=== PATIENT | female | born 1990 | race Caucasian/White ===

== ENCOUNTER 2021-03-13 11:33 | Emergency (ER) | payer OTHER, SELFPAY ==
[2021-03-13 11:43] VITALS: BP 113/72; PULSE 115; RESP 18; TEMP 36.4; O2SAT 100
[2021-03-13 12:31] LABS: Basophils Percent Auto 0.2 % (0.2-1.2); Eosinophils Percent Auto 0.4 % (0-4.4); Hemoglobin 13.4 g/dL (12.0-15.0); Immature Granulocyte Absolute 0.02 K/mm3 (0.00-0.031); Immature Granulocyte Percent A 0.4 % (0-0.5); Lymphocytes Absolute Auto 0.26 K/mm3 (0.9-3.2); Lymphocytes Percent Auto 5.1 % (18.3-44.2); Mean Corpuscular HGB Conc 35.3 g/dl (32-36); Mean Corpuscular Hemoglobin 29.8 pg (26-34); Mean Corpuscular Volume 84.4 fl (80-100); Mean Platelet Volume 10.3 fl (7.4-10.4); Monocytes Absolute Auto 0.3 K/mm3 (0.1-0.6); Monocytes Percent Auto 6.5 % (2.6-8.5); Neutrophils Absolute Auto 4.4 K/mm3 (1.3-6.7); Neutrophils Percent Auto 87.4 % (45.5-73.1); Platelet Count Result 275 k/mm3 (150-375); Red Cell Distribution Width 13.2 % (11.5-14.5); White Blood Count 5.1 K/mm3 (4.5-10.0)
[2021-03-13 12:35] LABS: Add Urine Microscopic? YES; Appearance Urine Cloudy (Clear); Bilirubin Urine Negative (Negative); Blood Urine Negative (Negative); Color Urine Yellow (Yellow); Glucose Urine UA Negative (Negative); Ketones Urine 2+ mg/dL (Negative); Leukocyte Esterase Ur Trace LEU/UL (Negative); Mucus Urine Heavy /lpf; Nitrate Urine Negative (Negative); Protein Urine 2+ mg/dL (Negative); Specific Grav Ur 1.027 (1.001-1.035); Squamous Epithelial Cell Urine Few /hpf (Few); Urobilinogen Urine Negative mg/dL (<2.0)
[2021-03-13 12:41] LABS: Alanine Aminotransferase 15 U/L (4-35); Albumin Level 4.7 g/dL (3.5-5.1); Alkaline Phosphatase 69 U/L (38-126); Anion Gap 13 mmol/L (8-16); Aspartate Amino Transferase 28 U/L (14-36); Bilirubin,Total 0.5 mg/dL (0.2-1.3); Blood Urea Nitrogen 9 mg/dL (7-17); Carbon Dioxide 17 mmol/L (22-30); Chloride 103 mmol/L (98-107); Estimated CRCL calculation 118 ml/min; Estimated Glomerular Filt Rate > 60; Glucose 98 mg/dL (65-110); Lipase 98 U/L (23-300); Potassium 3.8 mmol/L (3.4-5.0); Sodium 133 mmol/L (137-145)
--- NOTE | 2021-03-13 12:53 | ED.NAVMDI ---
HPI - Nausea/Vomiting/Diarrhea General Chief complaint: Nausea/Vomiting/Diarrhea Stated complaint: N/V 12WKS PREG Time Seen by Provider: 03/13/21 12:27 Source: patient Mode of arrival: ambulatory Limitations: no limitations History of Present Illness HPI Narrative: Patient is a 31-year-old female at 12 weeks complaining of nausea and vomiting, nonbilious nonbloody started yesterday. Patient states that she had hyperemesis gravidarum on her first . Patient states that she is had care with this and a first trimester ultrasound. Patient denies any abdominal pain, vaginal bleeding or vaginal discharge. Related Data Home Medications Medication Instructions Recorded Confirmed doxylamine-pyridoxine (vit B6) tablet PO 03/13/21 03/13/21 [Diclegis] Allergies Allergy/AdvReac Type Severity Reaction Status Date / Time No Known Allergies Allergy Verified 03/13/21 12:13 Review of Systems Review of Systems: All systems reviewed & are unremarkable except as noted in HPI and below Constitutional: Constitutional: Denies body ache(s), Denies chills, Denies excessive sweating, Denies fatigue, Denies fever(s), Denies headache(s), Denies lethargy, Denies malaise, Denies weakness and Denies weight loss Eyes: Eyes: Denies blurry vision, Denies change in vision and Denies loss of vision ENT: Denies dizziness, Denies ear discharge, Denies headache(s), Denies lip swelling, Denies epistaxis, Denies nasal congestion, Denies neck pain, Denies throat swelling and Denies tongue swelling Cardiovascular: Cardiovascular: Denies chest pain, Denies chest pain at rest, Denies chest pain with activity, Denies diaphoresis, Denies rapid heart rate, Denies edema, Denies irregular heart rhythm, Denies lightheadedness, Denies palpitations, Denies dyspnea and Denies dyspnea on exertion Respiratory: Respiratory: Denies chest congestion, Denies cough, Denies hemoptysis, Denies dyspnea and Denies dyspnea on exertion Gastrointestinal: Gastrointestinal: Denies abdominal pain, Denies melena, Denies hematochezia, Denies diarrhea and Denies hematemesis Musculoskeletal: Musculoskeletal: Denies abnormal gait, Denies deformity, Denies joint swelling, Denies limited range of motion, Denies neck pain and Denies numbness Neurologic: Denies Abnormal speech present, Denies abnormal gait, Denies confusion, Denies dizziness, Denies headache(s), Denies focal weakness, Denies loss of vision, Denies numbness, Denies Other visual disturbances, Denies Sensory deficit (Neuro) and Denies weakness Psychiatric: Psychiatric: Denies confusion, Denies depression, Denies auditory hallucinations, Denies homicidal ideation and Denies suicidal ideation Endocrine: Endocrine: Denies cold intolerance, Denies excessive sweating, Denies fatigue, Denies heat intolerance and Denies palpitations Hematologic/Lymphatic: Hematologic/Lymphatic: Denies easy bleeding and Denies easy bruising Allergic/Immunologic: Allergic/Immunologic: Denies lip swelling, Denies throat swelling and Denies tongue swelling PMFSH Comments Past medical history: Hyperemesis gravidarum Family history: Noncontributory Social history: Non-smoker no EtOH or drug use Exam Const: General: cooperative, healthy appearing, comfortable, no acute distress, well developed, alert and awake; No confusion Orientation/consciousness: oriented to person, oriented to place, oriented to time, patient oriented x3 and No confusion Limitations: no limitations HENMT: Head: normal to inspection, normocephalic and atraumatic Ears: hearing grossly normal bilaterally, TM normal on the right and TM normal on the left General nose exam: Normal external nose present, Normal nares present and No nasal discharge present Face and sinus: normal facial exam Mouth: Yes Normal oral and palatal mucosa present, Yes lip normal, Yes tongue normal and Yes oropharynx normal Throat: posterior oropharynx normal, tonsils normal and uvula
[2021-03-13] MEDS: PROMETHAZINE HCL 25 MG/ML AMPUL 12.5 MG IV PUSH (13:27)
[2021-03-13] MEDS: SODIUM CHLORIDE 0.9% IV 1,000 ML 999 ML IV CONT (13:28)
[2021-03-13 14:05] VITALS: BP 122/68; PULSE 98; RESP 17; O2SAT 98
[2021-03-13] MEDS: ONDANSETRON INJ 4 MG/2 ML VIAL (17:24)
== END 2021-03-13 17:40 | disposition home or self-care (01) ==
PROVIDERS: Emergency Provider Emergency Medicine
DX: O21.9 Vomiting of pregnancy, unspecified (principal); O23.41 Unspecified infection of urinary tract in pregnancy, first trimester; Z3A.12 12 weeks gestation of pregnancy
CPT/HCPCS: 36415; 80053; 81001; 83690; 84702; 85025; 87086; 87804; 96361; 96374; 96375; 99284; J2405; J2550; J7030

== ENCOUNTER 2021-09-29 22:33 | Inpatient (IN) | payer OTHER, SELFPAY ==
[2021-09-29] VITALS (9 sets, daily range): BP systolic 116–125; BP diastolic 65–93; PULSE 63–79; TEMP 36.2; O2SAT 99–100
[2021-09-29 23:31] LABS: Basophils Percent Auto 0.3 % (0.2-1.2); Eosinophils Percent Auto 0.4 % (0-4.4); Hematocrit 32.7 % (37.0-47.0); Hemoglobin 10.8 g/dL (12.0-15.0); Immature Granulocyte Absolute 0.04 K/mm3 (0.00-0.031); Immature Granulocyte Percent A 0.4 % (0-0.5); Lymphocytes Absolute Auto 3.05 K/mm3 (0.9-3.2); Lymphocytes Percent Auto 32.5 % (18.3-44.2); Mean Corpuscular Hemoglobin 28.8 pg (26-34); Mean Corpuscular Volume 87.2 fl (80-100); Monocytes Absolute Auto 0.7 K/mm3 (0.1-0.6); Monocytes Percent Auto 7.9 % (2.6-8.5); Neutrophils Absolute Auto 5.5 K/mm3 (1.3-6.7); Neutrophils Percent Auto 58.5 % (45.5-73.1); Platelet Count Result 215 k/mm3 (150-375); Red Blood Count 3.75 M/mm3 (4.2-5.4); Red Cell Distribution Width 14.6 % (11.5-14.5); White Blood Count 9.4 K/mm3 (4.5-10.0)
[2021-09-29] MEDS: LACTATED RINGERS 1,000 ML 125 ML IV CONT (23:33)
[2021-09-30] VITALS (237 sets, daily range): BP systolic 87–142; BP diastolic 55–89; PULSE 51–149; RESP 16–18; TEMP 36.6–37.3; O2SAT 86–100
[2021-09-30] MEDS: LACTATED RINGERS 1,000 ML 125 ML IV CONT ×2 (00:17→04:13)
--- NOTE | 2021-09-30 00:18 | WPDANESEPPF ---
Anes - Initial Pre Proc Eval Procedure: Labor epidural Date/Time: 09/30/21 00:18 Surgeon: Ayaan Guadalupe MD Pre Op Diagnosis: labor pain Pre Op Diagnosis: Contractions Patient Data Age: 31 Gender: F Height: Weight: Last Vital Signs Temp 36.2 C L 09/29/21 22:58 Pulse 61 09/30/21 00:16 BP 114/68 09/30/21 00:16 Pulse Ox 100 09/30/21 00:16 Allergies Allergy/AdvReac Type Severity Reaction Status Date / Time amoxicillin Allergy Rash Verified 08/30/21 13:33 Penicillins Allergy Rash Verified 08/30/21 13:33 Home Medications Medication Instructions Recorded Confirmed Type ferrous sulfate 140 mg (45 mg 140 mg PO DAILY 08/30/21 08/30/21 History iron) tablet,extended release prenat.vits,krishan,uso-nrhz-kwlrd 1 tablet PO DAILY 08/30/21 08/30/21 History Laboratory Tests 09/29/21 09/29/21 23:17 23:17 WBC 9.4 K/mm3 K/mm3 (4.5-10.0) RBC 3.75 M/mm3 L M/mm3 (4.2-5.4) Hgb 10.8 g/dL L g/dL (12.0-15.0) Hct 32.7 % L % (37.0-47.0) MCV 87.2 fl fl (80-100) MCH 28.8 pg pg (26-34) MCHC 33.0 g/dl g/dl (32-36) RDW 14.6 % H % (11.5-14.5) Plt Count 215 k/mm3 k/mm3 (150-375) MPV 11.0 fl H fl (7.4-10.4) Immature Gran % (Auto) 0.4 % % (0-0.5) Neut % (Auto) 58.5 % % (45.5-73.1) Lymph % (Auto) 32.5 % % (18.3-44.2) [place] % (Auto) 7.9 % % (2.6-8.5) Eos % (Auto) 0.4 % % (0-4.4) Baso % (Auto) 0.3 % % (0.2-1.2) Lymph # (Auto) 3.05 K/mm3 K/mm3 (0.9-3.2) [place] # (Auto) 0.7 K/mm3 H K/mm3 (0.1-0.6) Eos # (Auto) 0.0 K/mm3 K/mm3 (0-0.3) Baso # (Auto) 0.0 K/mm3 K/mm3 (0.0-0.1) Abs Immat Gran (auto) 0.04 K/mm3 H K/mm3 (0.00-0.031) Absolute Neuts (auto) 5.5 K/mm3 K/mm3 (1.3-6.7) Absolute Nucleated RBC 0.0 K/mm3 K/mm3 (0.0-0.012) Nucleated RBC % 0.0 % % (0.0-0.2) RPR Pending Patient hx anesthesia problems: none Family hx anesthesia problems: none Results Review: All pre-operative results and documents have been reviewed as part of the pre-operative evaluation. [facility] Family History Family History Father Hypertension Diabetes mellitus Grandparent Hypertension Diabetes mellitus Sibling Seizure disorder Grandparent Cerebrovascular accident Grandparent Epilepsy Social History Social History Substance use: never Spiritual care concerns: No Anes - Eval Final PreProcedure Day of Procedure 09/30/21 00:18 Patient weight: normal Heart: regular rate and rhythm Lungs: clear to auscultation Airway: Mallampati scale class 1 Neurological: alert and oriented Last oral intake: 2 hours ASA classification: II Emergent: no Anesthetic plan: proceed Anesthesia type and monitoring: regional epidural and standard monitoring Results Review: All pre-operative results and documents have been reviewed as part of the pre-operative evaluation. Informed Consent: The patient's anesthetic plan and its attendant risks and benefits were discussed with the patient/family/POA. Questions were solicited and answers provided to the satisfaction of the patient/family/POA.
--- NOTE | 2021-09-30 00:19 | WPDANESEPN ---
Anes - Epidural Procedure Note Date/Time: 09/30/21 00:19 Consent: I have discussed with the patient/family/POA, the placement of an epidural catheter and the use of epidural narcotic/local anesthetic for labor analgesia and/or postoperative pain management, including associated potential risks, benefits, complications and side effects. I have discussed alternative methods of labor analgesia and/or postoperative pain management. The patient/family/POA, understand(s) and wish(es) to proceed with epidural narcotic/local anesthetic for labor analgesia and/or postoperative pain management. Time-Out: A pre-procedural Time-Out was completed immediately before starting the procedure and confirmed: Patient Identification, Site, Procedure, Patient Position and the Availability of Requisite Equipment. Clinical Indications: labor pain Epidural Insertion Note Patient position: sitting Skin prep: chlorhexidine and sterile drape Needle: 18g Tuohy-Schliff Catheter: 20g Unstyleted Technique: Loss of resistance. Level of insertion: L3/4 Catheter skin martin (cm): 4 Length in epidural space (cm): 9 Skin anesthesia: lidocaine 1% Test dose: 1.5% Lidocaine with [id number] Epi Time of test dose: 00:06 Observations: tolerated well Complications: none
--- NOTE | 2021-09-30 00:48 | LDADM ---
This patient, Jyotsna Parada, was admitted to Labor/Delivery/Recovery 104 on 09/29/21 at 22:33. Plans for labor, pain management and were discussed with patient. Patient/family oriented to hospital policies and general routines including ID bracelet, bed and alarms, visiting hours, pain management, procedures, bathroom and other care routines, personal items, smoking policy, room service/diet and guest tray routines, security routines, and visiting hours. Patient/Family are encouraged to report perceived risks to care and to ask questions if they do not understand what they are told or what they should do. See OBIX for further documentation.
[2021-09-30 07:04] LABS: Rapid Plasma Reagin Non-Reactive (NonReactive)
[2021-09-30] MEDS: OXYTOCIN 30 UNITS/NS 500 ML 30 UNITS/500 ML BAG IV CONT (08:02)
--- NOTE | 2021-09-30 08:45 | WPDOBADMIT ---
Obstetrics - Admit Note Admission Note: record reviewed. Additions to the history and/or subsequent changes in the physical findings follow. 31 y/o at 40 2/7 weeks here with contractions. Labor was diagnosed. She is comfortable with epidural. GBS neg. AVSS NST reactive TOCO: contractions every 2-5 min ABD soft, nontender, gravid, vertex EXT nontender Cervix 5/50/-2. AROM with clear fluid. A: IUP at term with labor. P: Anticipate .
--- NOTE | 2021-09-30 12:22 | PM.OBPNLAB ---
Pain Control Date/time seen: 09/30/21 12:22 Comfortable with epidural. Feeling more pressure. AVSS NST reactive TOCO: contractions every 2-3 min Cervix C/+1 Begin pushing.
--- NOTE | 2021-09-30 12:48 | PM.OBPRVD ---
OB - Delivery Note Procedure Delivery date: 09/30/21 Procedure: Induction method: None Delivery augmentation: Rupture of Membranes and Pitocin Delivery monitor: External FHT and External Uterine Route of delivery: Laceration Description: None Specimen: Yes (cord blood) Quantitative Blood Loss (ml): 180 Anesthesia type: Epidural Disposition: PACU Complications: None Narrative: 31 y/o at 40 2/7 weeks gestation who presented to the hospital with contractions. Labor was diagnosed. She received an epidural. Amniotomy was performed with return of clear fluid. Oxytocin was administered to augment labor. Her labor progressed and her cervix dilated completely. She pushed with good effort and delivered the infant's head to the perineum, followed by the body. The nose and mouth were bulb suctioned. After a delay, the cord was clamped and cut. The was handed off the field. Cord blood was collected. The placenta delivered spontaneously and was grossly normal in appearance. The usual 3 vessel cord was noted. The perineum was intact. Excellent hemostasis resulted as did excellent reapproximation of the normal anatomy. Needle and instrument counts were correct. The patient was taken to recovery room in stable condition. The went to the nursery in stable condition. I was present and scrubbed for the entire delivery. [place] Baby Date of : 09/30/21 Time of : 12:32 Weeks of gestation at delivery: 40 Infant gender: Male Weight (pounds): 8 Weight (ounces): 9 presentation: vertex position: Right Occiput Anterior Placenta delivery description: Spontaneous and Normal Configuration Cord Vessel Description: 3 Vessels and Delayed Cord Clamping score one minute: 9 score five minutes: 9
--- NOTE | 2021-09-30 12:51 | P.DS_ITS ---
DS: Admitting Diagnosis Discharge Date 10/01/21 Admitting Diagnosis IUP at 40 weeks Labor DS: Discharge Diagnosis Discharge Diagnosis (1) (normal spontaneous vaginal delivery): Code(s): O80 - Encounter for full-term uncomplicated delivery Status: Acute OB - DS: Summary OB Procedures : None OB Procedures Intrapartum: Spontaneous Vag Delivery OB Procedures: : None Time Spent with Patient Time attestation: Total time spent providing and/or coordinating discharge services: DS: Data Data Completed and Pending Labs on day of discharge: Labs from last 24 hours 09/29/21 09/29/21 09/29/21 23:17 23:17 23:17 WBC 9.4 RBC 3.75 L Hgb 10.8 L Hct 32.7 L MCV 87.2 MCH 28.8 MCHC 33.0 RDW 14.6 H Plt Count 215 MPV 11.0 H Immature Gran % (Auto) 0.4 Neut % (Auto) 58.5 Lymph % (Auto) 32.5 [place] % (Auto) 7.9 Eos % (Auto) 0.4 Baso % (Auto) 0.3 Lymph # (Auto) 3.05 [place] # (Auto) 0.7 H Eos # (Auto) 0.0 Baso # (Auto) 0.0 Abs Immat Gran (auto) 0.04 H Absolute Neuts (auto) 5.5 Absolute Nucleated RBC 0.0 Nucleated RBC % 0.0 RPR Non-reactive Blood Type O Positive Antibody Screen Negative Discharge Plan Discharge Attending physician on discharge: Ayaan Guadalupe Discharging Clinician: Ayaan Guadalupe Patient Disposition: Home, Self-Care Activity: pelvic rest Diet: regular Discharge Instructions: Call or return if temperature above 100.4? F, increased abdominal pain, increased vaginal bleeding or any new problems. Stand Alone Forms: General Discharge Information Follow-up/Referrals: Ayaan Guadalupe MD [Physician] - 6 Weeks Discharge Medications: New ibuprofen 600 mg tablet 600 mg PO Q6H PRN (Reason: cramps) Qty: 30 0RF ferrous sulfate 325 mg (65 mg iron) tablet 325 mg PO DAILY Qty: 30 0RF Continued #2 Tablet 1 tablet PO DAILY Discontinued ferrous sulfate 140 mg (45 mg iron) Tablet Extended Release 140 mg PO DAILY Date of admission: 08/25/22 22:33 Primary Care Provider: PHYSICIAN,NANNY/HOUSEHOLD MANAGER Admitting Provider: Ayaan Guadalupe Attending physician on admission: Ayaan Guadalupe Condition: Stable
[2021-09-30] MEDS: OXYTOCIN 30 UNITS/NS 500 ML 30 UNITS/500 ML BAG 125 UNITS IV CONT (13:31)
--- NOTE | 2021-09-30 15:35 | PC.NURSE ---
Patient transferred to post room #278 via wheelchair. Support person present. Oriented to unit, room, information board, rooming in, admission packet and security measures. Patient verbalizes understanding.
[2021-09-30] MEDS: IBUPROFEN 600 MG TABLET PO (16:54)
[2021-10-01 05:00] VITALS: BP 105/63; PULSE 65; RESP 18; TEMP 36.6; O2SAT 100
[2021-10-01 06:08] LABS: Hematocrit 24.2 % (37.0-47.0); Hemoglobin 8.1 g/dL (12.0-15.0)
[2021-10-01] MEDS: IBUPROFEN 600 MG TABLET PO (07:13)
[2021-10-01 07:30] VITALS: BP 98/58; PULSE 63; RESP 16; TEMP 36.4; O2SAT 100
--- NOTE | 2021-10-01 08:12 | WPDANLDPN2 ---
Anes-Prog Note L&D Date/Time: 10/01/21 08:12 Comfortable throughout: labor and delivery Neuraxial method: epidural Epidural/Spinal procedure site: clean & non-tender Neuro status: Neuro function grossly intact. Cardiovascular status: normal Respiratory status: normal Airway patency: baseline Mental status: baseline Post-Op hydration status: normal Vital Signs: Last Vital Signs Temp 98 F 10/01/21 05:00 Pulse 65 10/01/21 05:00 Resp 18 10/01/21 05:00 BP 105/63 10/01/21 05:00 Pulse Ox 100 10/01/21 05:00 O2 Del Method Room Air 09/30/21 19:48 Pain score (VAS): 0 Post-procedural complaints: none Patient feedback: Patient satisfied with anesthetic care.
[2021-10-01] MEDS: POLYSACCHARIDE IRON COMPLEX 150 MG CAPSULE PO ×2 (09:24→09:27)
[2021-10-01] MEDS: DOCUSATE SODIUM 100 MG CAPSULE PO ×2 (09:24→09:27)
[2021-10-01] MEDS: MULTIVIT/MIN/PREN/FOL AC/IRON TABLET 1 TAB PO ×2 (09:24→09:27)
--- NOTE | 2021-10-01 09:34 | PM.OBPNVD ---
OB - PN: Subj Subjective Date/time seen: 10/01/21 09:34 Narrative: Pain OK. Desires circumcision for son. Would like to go home. OB - PN: Obj Data Labs CBC & Chem 7: 10/01/21 04:47 Labs: Laboratory Results - last 24 hr 10/01/21 04:47 Hgb 8.1 L Hct 24.2 L OB - PN A/P Plan Comments: A: PPD#1, doing well. P: Reviewed circ. Home to f/u 6 weeks. Exam Psych: Other: AVSS ABD soft, nontender, fundus firm EXT nontender
[2021-10-01] MEDS: TETANUS,DIPHTHERIA,AC PERTUSSIS ADULT (0.5 ML) BOOSTRIX IM (13:56)
[2021-10-01] MEDS: LANOLIN (LANSINOH) 7.5 GM CREAM 1 APPLIC TOPICAL (14:09)
[2021-10-03 08:37] VITALS: BP 108/63; PULSE 82; RESP 20; TEMP 36.7; O2SAT 100
== END 2021-10-01 15:04 | disposition home or self-care (01) | DRG 807 ==
LOC: ANHLDR 09-30 12:52 → ANHOB2 09-30 15:57
PROVIDERS: Admitting Provider Obstetrics & Gynecology; Visit Provider Obstetrics & Gynecology
DX: O80 Encounter for full-term uncomplicated delivery (principal); Z37.0 Single live birth; Z3A.40 40 weeks gestation of pregnancy
CPT/HCPCS: 36415; 85014; 85018; 85025; 86592; 86850; 86900; 86901; 90715; A9270; J2590; J2795; J7120